=== PATIENT | female | born 1960 | race Hispanic/Latino ===

== ENCOUNTER 2019-06-08 09:50 | Outpatient (CLI) | payer MEDICARE ==
[2019-06-08 13:03] LABS: Basophils % (Auto) 0.7 % (0.0-1.8); Eosinophils # (Auto) 0.2 K/mm3 (0.0-0.4); Eosinophils % (Auto) 2.9 % (0.0-4.3); Hematocrit 41.6 % (30.3-42.9); Lymphocytes # (Auto) 1.7 K/mm3 (1.2-5.4); Mean Corpuscular HGB Conc 34 % (30-34); Mean Corpuscular Volume 93 fl (79-97); Monocytes # (Auto) 0.4 K/mm3 (0.0-0.8); Platelet Count 287 K/mm3 (140-440); Red Blood Count 4.48 M/mm3 (3.65-5.03); Red Cell Distribution Width 13.2 % (13.2-15.2)
[2019-06-08 13:27] LABS: Creatinine,Urine 34.5 mg/dL (0.1-20.0); Microalbumin/Creatinine Ratio 133.3 ug/mg
[2019-06-08 13:39] LABS: Alanine Aminotransferase 29 units/L (7-56); Albumin 4.8 g/dL (3.9-5); BUN/Creatinine Ratio 18; Blood Urea Nitrogen 11 mg/dL (7-17); Calcium 10.3 mg/dL (8.4-10.2); Chol/HDL Ratio 5.09 %; HDL Cholesterol 51 mg/dL (40-59); Hemolysis Index 5; LDL Cholesterol,Direct 172 mg/dL (50-130)
[2019-06-11 13:58] LABS: Vitamin D, 25-OH, D2 <4 ng/mL
== END 2019-06-08 09:51 | disposition home or self-care (01) ==
LOC: LAB 09:50
PROVIDERS: ATTEND Internal Medicine
DX: E11.65 Type 2 diabetes mellitus with hyperglycemia (principal); E78.5 Hyperlipidemia, unspecified; Z00.00 Encounter for general adult medical examination without abnormal findings; Z13.29 Encounter for screening for other suspected endocrine disorder; Z13.21 Encounter for screening for nutritional disorder
CPT/HCPCS: 36415; 80053; 80061; 82043; 82306; 82607; 83036; 84443; 85025

== ENCOUNTER 2020-02-24 09:53 | Outpatient (CLI) | payer MEDICARE | END 2020-02-24 09:54 | disposition home or self-care (01) | LOC: MAMMO 09:53 | PROVIDERS: ATTEND Internal Medicine | DX: Z12.31 Encounter for screening mammogram for malignant neoplasm of breast (principal) | CPT/HCPCS: 77067 ==

== ENCOUNTER 2020-08-01 13:10 | Emergency (ER) | payer MEDICARE ==
[2020-08-01 14:17] VITALS: BP 150/72
[2020-08-01] MEDS ORDERED: DIPHtheria,PERTUSSIS(ACELL),TETANUS VACCINE/PF 0.5 ML VIAL IM ONE (14:49)
--- NOTE | 2020-08-01 15:09 | XRay Report ---
LEFT TIBIA AND FIBULA 2 VIEWS INDICATION: left leg pain s/p direct blow. COMPARISON: None. IMPRESSION: No acute osseous or soft tissue abnormality. No significant DJD. Signer Name: Jeff Medina Jr, MD Signed: 08/01/2020 3:04 PM Workstation Name: [id number]
--- NOTE | 2020-08-01 15:20 | Emergency Department Report ---
ED Lower Extremity HPI - General Chief Complaint: Extremity Injury, Lower Stated Complaint: LEG LEFT INJURY Time Seen by Provider: 08/01/20 14:19 Source: patient Mode of arrival: Ambulatory Limitations: No Limitations - History of Present Illness Initial Comments: This is a 60-year-old female nontoxic, well nourished in appearance, no acute signs of distress presents to the ED with c/o of right lower leg abrasion. Patient stated that while at work she hit her leg against the metal cart. Patient denies any other injuries or trauma. Patient denies decreased sensation or range of motion. Patient stated bleeding is under control. Denies any numbn ess, tingling, fever, chills, nausea, vomiting, chest pain, shortness of breath, headache or stiff neck. Patient denies any allergies to significant past medical history. Patient is that he is not up-to-date with tetanus. MD Complaint: leg injury -: This morning Injury: Leg: Left Place: work Severity: mild Severity scale (0 -10): 3 Improves With: rest Worsens With: palpation Context: direct blow Associated Symptoms: ambulatory. denies: snap/pop sensation, swelling, numbness, tingling, unable to bear weight, able to partially bear weight - Related Data Previous Rx's Medication Instructions Recorded Last Taken Type Sulfamethoxazole/Trimethoprim 1 each PO BID #14 tablet 08/01/20 Unknown Rx [Bactrim DS TAB] Allergies Allergy/AdvReac Type Severity Reaction Status Date / Time codeine Allergy Itching Verified 08/01/20 14:18 ED Review of Systems ROS: Stated complaint: LEG LEFT INJURY Other details as noted in HPI Comment: All other systems reviewed and negative Constitutional: denies: chills, fever Eyes: denies: eye pain, eye discharge, vision change ENT: denies: ear pain, throat pain Respiratory: denies: cough, shortness of breath, wheezing Cardiovascular: denies: chest pain, palpitations Endocrine: no symptoms reported Gastrointestinal: denies: abdominal pain, nausea, diarrhea Genitourinary: denies: urgency, dysuria, discharge Musculoskeletal: denies: back pain, joint swelling, arthralgia Skin: denies: rash, lesions Neurological: denies: headache, weakness, paresthesias Psychiatric: denies: anxiety, depression Hematological/Lymphatic: denies: easy bleeding, easy bruising ED Past Medical Hx - Past Medical History Previous Medical History?: Yes Hx Diabetes: Yes Hx of Cancer: Yes (cervical) Hx Arthritis: Yes Hx Asthma: Yes Additional medical history: fibromylagia - Surgical History Past Surgical History?: Yes Additional Surgical History: bilateral hand surgery for trigger finger'. hy sterectomy - Social History Smoking Status: Current Every Day Smoker Substance Use Type: None - Medications Home Medications: Home Medications Medication Instructions Recorded Confirmed Last Taken Type Sulfamethoxazole/Trimethoprim 1 each PO BID #14 tablet 08/01/20 Unknown Rx [Bactrim DS TAB] ED Physical Exam - General Limitations: No Limitations General appearance: alert, in no apparent distress - Head Head exam: Present: atraumatic, normocephalic - Eye Eye exam: Present: normal appearance - Neck Neck exam: Present: normal inspection, full ROM - Respiratory Respiratory exam: Absent: respiratory distress - Cardiovascular Cardiovascular Exam: Present: regular rate - Extremities Exam Extremities exam: Present: normal inspection, full ROM, tenderness, normal capillary refill. Absent: joint swelling, calf tenderness - Expanded Lower Extremity Exam Left Hip exam: Present: normal inspection, full ROM. Absent: tenderness, swelling Upper Leg exam: Present: normal inspection, full ROM. Absent: tenderness, swelling, abrasion, laceration, ecchymosis, deformity, crepidus, dislocation, erythema Knee exam: Present: normal inspection, full ROM, full knee extension. Absent: tenderness, swelling, abrasion, laceration, ecchymosis, deformity, crepidus, dislocation, erythema, effusion, pain w/ pronation/supination, posterior draw sign, pain/laxity with valgus, pain/laxity with varus Lower Leg exam: Present: full ROM, tenderness, abrasion. Absent: swelling, laceration, ecchymosis, deformity, crepidus, dislocation, erythema, palpable cord, Harley's sign Ankle exam: Present: normal inspection, full ROM. Absent: tenderness, swelling Foot/Toe exam: Present: normal inspection, full ROM. Absent: tenderness, swelling Neuro vascular tendon exam: Present: no vascular compromise Gait: Positive: observed and normal 1 - 1 cm superficial abrasion - Back Exam Back exam: Present: normal inspection, full ROM. Absent: tenderness, CVA tenderness (R), CVA tenderness (L), muscle spasm, paraspinal tenderness, vertebral tenderness, rash noted - Neurological Exam Neurological exam: Present: alert, oriented X3, normal gait - Psychiatric Psychiatric exam: Present: normal affect, normal mood - Skin Skin exam: Present: warm, dry, intact, normal color. Absent: rash ED Course Vital Signs 08/01/20 14:14 Temperature 98.3 F Pulse Rate 99 H Respiratory 16 Rate Blood Pressure 150/72 O2 Sat by Pulse 99 Oximetry - Reevaluation(s) Reevaluation #1: 08/01/20 15:22 Patient is speaking in full sentences with no signs of distress noted. ED Lower Extremity MDM - Radiology Data [facility] [address] [place] [address] XRay Report Signed Patient: LIS RODRIGUEZ MR#: [id number] : 1960 Acct:[id number] Age/Sex: 60 / F ADM Date: 08/01/20 Loc: ED Attending Dr: Ordering Physician: SHIKHA VERAS NP Date of Service: 08/01/20 Procedure(s): XR tibia fibula 2V LT Accession Number(s): [id number] cc: SHIKHA VERAS NP Fluoro Time In Minutes: LEFT TIBIA AND FIBULA 2 VIEWS INDICATION: left leg pain s/p direct blow. COMPARISON: None. IMPRESSION: No acute osseous or soft tissue abnormality. No significant DJD. Signer Name: Jeff Medina Jr, MD Signed: 08/01/2020 3:04 PM Workstation Name: [id number] Transcribed By: TTR Dictated By: JEFF MEDINA JR, MD Electronically Authenticated By: JEFF MEDINA JR, MD Signed Date/Time: 08/01/201503 DD/ 03 TD/TT: - Medical Decision Making This is a 60-year-old female that presents with left leg abrasion. Patient is stable and was examined by me. X-ray has been obtained and dictated by the radiologist. Patient is notified of the x-ray report with noted by the patient. Patient does have normal gait with no tenderness and no joint swelling. No ecchymosis. no joint redness or swelling. Not warm to touch. No signs of cellulites present. The area has been cleaned and sterile dressing has been applied. Patient received a tetanus booster in the ER. Educated on proper wound care. Patient be discharged with Bactrim empirically. At time of discharge, the patient does not seem toxic or ill in appearance. No acute signs of distress noted. Patient agrees to discharge treatment plan of care. No further questions noted by the patient. Critical care attestation.: If time is entered above; I have spent that time in minutes in the direct care of this critically ill patient, excluding procedure time. ED Disposition Clinical Impression: Abrasion, left lower leg, initial encounter Disposition: TO HOME OR SELFCARE Is pt being admited?: No Does the pt Need Aspirin: No Condition: Stable Instructions: Abrasion, Wound Care, Adult Additional Instructions: Follow-up with a primary care doctor in 3-5 days or if symptoms worsen and continue return to emergency room as soon as possible. Prescriptions: Sulfamethoxazole/Trimethoprim [Bactrim DS TAB] 1 each PO BID #14 tablet Referrals: PRIMARY CAREMD [Referring] - 3-5 Days PORTER ELIZONDO MD [Staff Physician] - 3-5 Days Time of Disposition: 15:24
== END 2020-08-01 16:43 | disposition home or self-care (01) ==
LOC: ED 13:10
DX: S80.812A Abrasion, left lower leg, initial encounter (principal); E11.9 Type 2 diabetes mellitus without complications; M19.90 Unspecified osteoarthritis, unspecified site; J45.909 Unspecified asthma, uncomplicated; F17.200 Nicotine dependence, unspecified, uncomplicated; Z98.890 Other specified postprocedural states; Z88.6 Allergy status to analgesic agent; Z79.899 Other long term (current) drug therapy; Z90.710 Acquired absence of both cervix and uterus; W22.8XXA Striking against or struck by other objects, initial encounter; Y93.89 Activity, other specified; Y92.89 Other specified places as the place of occurrence of the external cause; Y99.0 Civilian activity done for income or pay
CPT/HCPCS: 90471; 90715; 99283

== ENCOUNTER 2020-12-24 19:33 | Inpatient (IN) | payer MEDICARE ==
[2020-12-24] MEDS ORDERED: IPRATROPIUM 0.02% NEBU 2.5 ML IH ONE (20:38)
[2020-12-24] MEDS ORDERED: LEVALBUTEROL 0.63 MG/3 ML NEBU IH ONE (20:39)
--- NOTE | 2020-12-24 20:44 | Emergency Department Report ---
ED Asthma HPI - General Chief Complaint: Adult Asthma Stated Complaint: ASTHMA ATTACK Time Seen by Provider: 12/24/20 20:38 Source: patient, EMS - History of Present Illness Initial Comments: Patient is 60 years old female with history of asthma. Patient brought to the emergency room via EMS from home for evaluation of asthma attack. Patient stated the symptoms started last night and she has been using her albuterol with no improvement. Patient received albuterol, Solu-Medrol and magnesium sulfate by EMS. Symptom improved transiently however patient symptoms became more severe in the ER required BiPAP. EMS stated that initial oxygen saturation was 83%. Patient denied any prior intubation before. Patient denied any fever but she stated that she feels like she is having some chills. Patient stated that she had modern COVID-19 vaccine both doses in October. MD Complaint: "asthma attack", shortness of breath, wheezing -: Last night Asthma History: adult onset Treatments Prior to Arrival: inhaled bronchodilator, IV steroid - Related Data Current Asthma Therapy: inhaled bronchodilator Previous Rx's Medication Instructions Recorded Last Taken Type Sulfamethoxazole/Trimethoprim 1 each PO BID #14 tablet 08/01/20 Unknown Rx [Bactrim DS TAB] Allergies Allergy/AdvReac Type Severity Reaction Status Date / Time aspirin Allergy Mild Nausea Verified 12/24/20 21:12 ED Review of Systems ROS: Stated complaint: ASTHMA ATTACK Other details as noted in HPI Comment: All other systems reviewed and negative Constitutional: chills. denies: fever Respiratory: shortness of breath, SOB with exertion, SOB at rest, wheezing. denies: cough Cardiovascular: denies: chest pain, palpitations Gastrointestinal: denies: abdominal pain, nausea, vomiting Musculoskeletal: denies: back pain Neurological: denies: headache, weakness ED Past Medical Hx - Past Medical History Hx Diabetes: Yes Hx Arthritis: Yes Hx Asthma: Yes Additional medical history: fibromylagia - Surgical History Additional Surgical History: bilateral hand surgery for trigger finger'. hysterectomy - Social History Smoking Status: Current Every Day Smoker Substance Use Type: None - Medications Home Medications: Home Medications Medication Instructions Recorded Confirmed Last Taken Type Sulfamethoxazole/Trimethoprim 1 each PO BID #14 tablet 08/01/20 Unknown Rx [Bactrim DS TAB] ED Physical Exam - General General appearance: alert, in distress - Head Head exam: Present: atraumatic, normocephalic, normal inspection - Eye Eye exam: Present: normal appearance, PERRL - ENT ENT exam: Present: normal exam, normal orophraynx, mucous membranes moist - Neck Neck exam: Present: normal inspection, full ROM. Absent: tenderness, meningismus - Respiratory Respiratory exam: Present: respiratory distress, wheezes, rales, rhonchi, accessory muscle use, decreased breath sounds, prolonged expiratory. Absent: stridor - Cardiovascular Cardiovascular Exam: Present: regular rate, normal rhythm, normal heart sounds - GI/Abdominal GI/Abdominal exam: Present: soft, normal bowel sounds. Absent: distended, tenderness, guarding, rebound, rigid, organomegaly, mass, bruit, pulsatile mass, hernia - Extremities Exam Extremities exam: Present: normal inspection, full ROM, normal capillary refill. Absent: tenderness, pedal edema, joint swelling, calf tenderness - Back Exam Back exam: Present: normal inspection, full ROM. Absent: CVA tenderness (R), CVA tenderness (L) - Neurological Exam Neurological exam: Present: alert, oriented X3, CN II-XII intact, normal gait, reflexes normal. Absent: motor sensory deficit - Psychiatric Psychiatric exam: Present: normal mood - Skin Skin exam: Present: warm, intact, normal color ED Course Vital Signs 12/24/20 12/24/20 12/24/20 20:38 21:20 22:05 Temperature Pulse Rate Pulse Rate [ 123 H Throughout] Respiratory 25 H Rate Respiratory 15 Rate [ Throughout] Blood Pressure O2 Sat by Pulse 98 Oximetry 12/25/20 12/25/20 12/25/20 00:50 03:17 03:30 Temperature Pulse Rate 125 H 125 H 126 H Pulse Rate [ Throughout] Respiratory 24 25 H 25 H Rate Respiratory Rate [ Throughout] Blood Pressure 147/76 147/76 O2 Sat by Pulse 97 96 95 Oximetry 12/25/20 12/25/20 12/25/20 03:46 04:00 04:16 Temperature Pulse Rate 114 H 112 H 113 H Pulse Rate [ Throughout] Respiratory 21 21 21 Rate Respiratory Rate [ Throughout] Blood Pressure 147/76 147/76 O2 Sat by Pulse 94 93 94 Oximetry 12/25/20 12/25/20 12/25/20 04:30 04:46 05:00 Temperature Pulse Rate 114 H 115 H 115 H Pulse Rate [ Throughout] Respiratory 22 23 21 Rate Respiratory Rate [ Throughout] Blood Pressure 147/76 147/76 127/78 O2 Sat by Pulse 93 94 96 Oximetry 12/25/20 12/25/20 12/25/20 05:16 05:30 05:46 Temperature Pulse Rate 113 H 107 H 119 H Pulse Rate [ Throughout] Respiratory 26 H 18 27 H Rate Respiratory Rate [ Throughout] Blood Pressure 127/78 127/78 127/78 O2 Sat by Pulse 96 96 95 Oximetry 12/25/20 12/25/20 12/25/20 06:00 06:16 06:30 Temperature Pulse Rate 113 H 119 H 116 H Pulse Rate [ Throughout] Respiratory 21 15 22 Rate Respiratory Rate [ Throughout] Blood Pressure 131/80 131/80 131/80 O2 Sat by Pulse 97 96 96 Oximetry 12/25/20 12/25/20 12/25/20 06:46 07:00 07:16 Temperature Pulse Rate 124 H 106 H 112 H Pulse Rate [ Throughout] Respiratory 22 17 19 Rate Respiratory Rate [ Throughout] Blood Pressure 131/80 122/73 131/80 O2 Sat by Pulse 90 95 95 Oximetry 12/25/20 12/25/20 12/25/20 07:30 07:40 07:46 Temperature Pulse Rate 120 H 110 H Pulse Rate [ Throughout] Respiratory 21 21 16 Rate Respiratory Rate [ Throughout] Blood Pressure 131/80 131/80 O2 Sat by Pulse 92 95 94 Oximetry 12/25/20 12/25/20 12/25/20 08:00 08:16 08:30 Temperature Pulse Rate 107 H 114 H 121 H Pulse Rate [ Throughout] Respiratory 18 21 21 Rate Respiratory Rate [ Throughout] Blood Pressure 137/84 137/84 137/84 O2 Sat by Pulse 95 94 95 Oximetry 12/25/20 12/25/20 12/25/20 08:46 09:00 09:15 Temperature Pulse Rate 110 H 118 H 123 H Pulse Rate [ Throughout] Respiratory 21 23 24 Rate Respiratory Rate [ Throughout] Blood Pressure 137/84 130/81 130/81 O2 Sat by Pulse 96 95 84 Oximetry 12/25/20 12/25/20 12/25/20 09:30 09:46 10:00 Temperature Pulse Rate 121 H 118 H 124 H Pulse Rate [ Throughout] Respiratory 19 24 24 Rate Respiratory Rate [ Throughout] Blood Pressure 130/81 130/81 124/70 O2 Sat by Pulse 87 84 80 L Oximetry 12/25/20 12/25/20 12/25/20 10:16 10:30 10:46 Temperature Pulse Rate 114 H 121 H 120 H Pulse Rate [ Throughout] Respiratory 20 25 H 27 H Rate Respiratory Rate [ Throughout] Blood Pressure 124/70 124/70 124/70 O2 Sat by Pulse 86 85 89 Oximetry 12/25/20 12/25/20 12/25/20 11:00 11:16 11:30 Temperature Pulse Rate 117 H 122 H 127 H Pulse Rate [ Throughout] Respiratory 23 33 H 27 H Rate Respiratory Rate [ Throughout] Blood Pressure 111/53 111/53 111/53 O2 Sat by Pulse 87 83 L 81 L Oximetry 12/25/20 12/25/20 12/25/20 11:46 12:00 12:16 Temperature 98.8 F Pulse Rate 116 H 119 H 105 H Pulse Rate [ Throughout] Respiratory 23 22 20 Rate Respiratory Rate [ Throughout] Blood Pressure 111/53 126/71 126/71 O2 Sat by Pulse 88 85 90 Oximetry 12/25/20 12/25/20 12/25/20 12:30 12:46 13:00 Temperature Pulse Rate 116 H 111 H 113 H Pulse Rate [ Throughout] Respiratory 25 H 18 22 Rate Respiratory Rate [ Throughout] Blood Pressure 126/71 126/71 128/84 O2 Sat by Pulse 85 90 88 Oximetry 12/25/20 12/25/20 12/25/20 13:16 13:30 13:46 Temperature Pulse Rate 120 H 102 H 94 H Pulse Rate [ Throughout] Respiratory 26 H 21 19 Rate Respiratory Rate [ Throughout] Blood Pressure 128/84 128/84 128/84 O2 Sat by Pulse 84 91 95 Oximetry 12/25/20 12/25/20 12/25/20 14:00 14:16 14:30 Temperature Pulse Rate 118 H 107 H 108 H Pulse Rate [ Throughout] Respiratory 26 H 23 22 Rate Respiratory Rate [ Throughout] Blood Pressure 134/81 134/81 134/81 O2 Sat by Pulse 87 92 91 Oximetry 12/25/20 12/25/20 12/25/20 14:46 15:00 15:16 Temperature Pulse Rate 114 H 120 H 116 H Pulse Rate [ 109 H Throughout] Respiratory 18 29 H 22 Rate Respiratory 21 Rate [ Throughout] Blood Pressure 134/81 137/83 137/83 O2 Sat by Pulse 90 91 91 Oximetry 12/25/20 12/25/20 12/25/20 15:30 15:46 16:00 Temperature Pulse Rate 103 H 108 H 114 H Pulse Rate [ Throughout] Respiratory 20 19 23 Rate Respiratory Rate [ Throughout] Blood Pressure 137/83 137/83 146/85 O2 Sat by Pulse 93 94 89 Oximetry 12/25/20 12/25/20 12/25/20 16:16 16:30 16:46 Temperature Pulse Rate 119 H 119 H 113 H Pulse Rate [ Throughout] Respiratory 19 24 21 Rate Respiratory Rate [ Throughout] Blood Pressure 146/85 146/85 146/85 O2 Sat by Pulse 90 89 88 Oximetry 12/25/20 12/25/20 12/25/20 17:00 17:16 17:30 Temperature Pulse Rate 108 H 112 H 121 H Pulse Rate [ Throughout] Respiratory 21 20 26 H Rate Respiratory Rate [ Throughout] Blood Pressure 135/80 135/80 135/80 O2 Sat by Pulse 91 92 87 Oximetry 12/25/20 12/25/20 12/25/20 17:46 18:00 18:16 Temperature Pulse Rate 114 H 111 H 117 H Pulse Rate [ Throughout] Respiratory 24 23 27 H Rate Respiratory Rate [ Throughout] Blood Pressure 135/80 140/87 140/87 O2 Sat by Pulse 91 91 89 Oximetry 12/25/20 12/25/20 12/25/20 18:30 18:46 19:00 Temperature Pulse Rate 121 H 112 H 109 H Pulse Rate [ Throughout] Respiratory 27 H 23 21 Rate Respiratory Rate [ Throughout] Blood Pressure 140/87 140/87 129/74 O2 Sat by Pulse 87 90 91 Oximetry 12/25/20 12/25/20 19:16 20:00 Temperature Pulse Rate 111 H Pulse Rate [ 121 H Throughout] Respiratory 23 Rate Respiratory 20 Rate [ Throughout] Blood Pressure 129/74 O2 Sat by Pulse 89 Oximetry ED Medical Decision Making - Lab Data Result diagrams: 12/25/20 04:04 12/25/20 04:04 - Radiology Data Radiology results: report reviewed - Medical Decision Making Patient is 60 years old female with history of asthma. Patient brought to the emergency room via EMS from home for evaluation of asthma attack. Patient stated the symptoms started last night and she has been using her albuterol with no improvement. Patient received albuterol, Solu-Medrol and magnesium sulfate by EMS. Symptom improved transiently however patient symptoms became more severe in the ER required BiPAP. EMS stated that initial oxygen saturation was 83%. Patient denied any prior intubation before. Patient denied any fever but she stated that she feels like she is having some chills. Chest x-ray showed right lung atypical pneumonia. Patient started on Rocephin and Zithromax. Labs reviewed and show white blood cells of 20,000. I discussed the patient with , he agreed to admit the patient to medical service for further management. Critical Care Time: Yes Critical care time in (mins) excluding proc time.: 30 Critical care attestation.: If time is entered above; I have spent that time in minutes in the direct care of this critically ill patient, excluding procedure time. ED Disposition Clinical Impression: Acute asthma exacerbation, Pneumonia, Acute respiratory failure Disposition: 09 OP ADMIT IP TO THIS HOSP Is pt being admited?: Yes Condition: Stable
--- NOTE | 2020-12-24 21:12 | XRay Report ---
CHEST 1 VIEW INDICATION / CLINICAL INFORMATION: Dyspnea. COMPARISON: None available. FINDINGS: SUPPORT DEVICES: None. HEART / MEDIASTINUM: No significant abnormality. LUNGS / PLEURA: Both lungs are hyperinflated. There is interstitial prominence throughout the right l evans, asymmetrical compared with the left. Left lung is relatively clear. No focal area of consolidati on noted. No pneumothorax. ADDITIONAL FINDINGS: No significant additional findings. IMPRESSION: 1. Diffuse interstitial prominence throughout the right lung only. This could indicate the presence o f atypical pneumonia. Signer Name: Stefani Sutton MD Signed: 12/24/2020 9:08 PM Workstation Name: [id number]
[2020-12-24 21:35] LABS: BUN/Creatinine Ratio 23; Blood Urea Nitrogen 14 mg/dL (7-17); Calcium 9.5 mg/dL (8.4-10.2); Hemolysis Index 2
[2020-12-24 21:44] LABS: Hematocrit 39.6 % (30.3-42.9); Hemoglobin 13.5 gm/dl (10.1-14.3); Mean Corpuscular HGB Conc 34 % (30-34); Mean Corpuscular Volume 94 fl (79-97); Platelet Count 289 K/mm3 (140-440); Red Blood Count 4.22 M/mm3 (3.65-5.03); Red Cell Distribution Width 13.8 % (13.2-15.2)
[2020-12-24] MEDS ORDERED: MORPHINE 4 MG/1 ML INJ IM ONE (21:56)
[2020-12-24] MEDS ORDERED: cefTRIAXone/NS 1 GM/50 ML 1 GM/50 ML BAG IV ONE (22:02)
[2020-12-24] MEDS ORDERED: AZITHROMYCIN/NS 500 MG/250 ML 500 MG/250 ML BAG IV ONE (22:02)
[2020-12-24 22:41] LABS: RBC Morphology Normal; Total Cells Counted 100
[2020-12-24] MEDS ORDERED: ALBUTEROL 2.5 MG/3 ML NEBU IH PRN (22:56)
[2020-12-24] MEDS ORDERED: ACETAMINOPHEN 325 MG TAB PO PRN (22:56)
[2020-12-24] MEDS ORDERED: ONDANSETRON 4 MG/2 ML INJ IV PRN (22:56)
[2020-12-24] MEDS ORDERED: hydrALAZINE 20 MG/1 ML INJ IV PRN (22:59)
--- NOTE | 2020-12-24 23:07 | History and Physical Report ---
History of Present Illness Date of examination: 12/24/20 Date of admission: 12/24/20 Chief complaint: Shortness of breath Asthma attack History of present illness: 10 years old female with history of asthma was brought to the emergency room because of progressive shortness of breath and asthma exacerbation since last night and she has been using her albuterol with no improvement. Patient received albuterol, Solu-Medrol and magnesium sulfate by EMS. Symptom improved transiently however patient symptoms became more severe in the ER required BiPAP. EMS stated that initial oxygen saturation was 83%. Patient denied any prior intubation before. Patient denied any fever but she stated that she feels like she is having some chills. Patient stated that she had modern COVID-19 vaccine both doses in October. In the emergency room patient is found to have acute asthma exacerbation and pneumonia Past History Past Medical History: arthritis, diabetes, other (Asthma) Medications and Allergies Allergies Allergy/AdvReac Type Severity Reaction Status Date / Time aspirin Allergy Mild Nausea Verified 12/24/20 21:12 Home Medications Medication Instructions Recorded Confirmed Last Taken Type Sulfamethoxazole/Trimethoprim 1 each PO BID #14 tablet 08/01/20 Unknown Rx [Bactrim DS TAB] Active Meds: Active Medications Azithromycin (Zithromax/Ns) 500 mg in 250 mls @ 250 mls/hr IV ONCE ONE; Protocol Stop: 12/24/20 23:01 Last Admin: 12/24/20 22:37 Dose: 250 mls/hr Documented by: Review of Systems Cardiovascular: shortness of breath, dyspnea on exertion Respiratory: shortness of breath, dyspnea on exertion, wheezing Exam - Constitutional Vitals: Temp Pulse Resp BP Pulse Ox 123 H 25 H 98 12/24/20 20:38 12/24/20 22:05 12/24/20 21:20 General appearance: Present: no acute distress, well-nourished - EENT Eyes: Present: PERRL ENT: hearing intact, clear oral mucosa - Neck Neck: Present: supple, normal ROM - Respiratory Respiratory effort: normal Respiratory: bilateral: wheezing - Cardiovascular Heart Sounds: Present: S1 & S2. Absent: rub, click - Extremities Extremities: pulses symmetrical, No edema Peripheral Pulses: within normal limits - Abdominal General gastrointestinal: Present: soft, non-tender, non-distended, normal bowel sounds Female genitourinary: Present: normal - Integumentary Integumentary: Present: clear, warm, dry - Musculoskeletal Musculoskeletal: gait normal, strength equal bilaterally - Psychiatric Psychiatric: appropriate mood/affect, intact judgment & insight - Neurologic Neurologic: CNII-XII intact, moves all extremities Results - Labs CBC & Chem 7: 12/24/20 21:02 12/24/20 21:02 Labs: Laboratory Last Values WBC 20.5 K/mm3 (4.5-11.0) H 12/24/20 21:02 RBC 4.22 M/mm3 (3.65-5.03) 12/24/20 21:02 Hgb 13.5 gm/dl (10.1-14.3) 12/24/20 21: Hct 39.6 % (30.3-42.9) 12/24/20 21: MCV 94 fl (79-97) 12/24/20 21: MCH 32 pg (28-32) 12/24/20 21: MCHC 34 % (30-34) 12/24/20 21: RDW 13.8 % (13.2-15.2) 12/24/20 21: Plt Count 289 K/mm3 (140-440) 12/24/20 21:02 Add Manual Diff Complete 12/24/20 21: Total Counted 100 12/24/20 21:02 Seg Neutrophils % Oral Communication Instructor 12/24/20 21:02 Seg Neuts % (Manual) 91.0 % (40.0-70.0) H 12/24/20 21:02 Lymphocytes % (Manual) 5.0 % (13.4-35.0) L 12/24/20 21:02 Monocytes % (Manual) 4.0 % (0.0-7.3) 12/24/20 21: Nucleated RBC % Not Reportable 12/24/20 21: Seg Neutrophils # Man 18.7 K/mm3 (1.8-7.7) H 12/24/20 21:02 Band Neutrophils # 0.0 K/mm3 12/24/20 21:02 Lymphocytes # (Manual) 1.0 K/mm3 (1.2-5.4) L 12/24/20 21:02 Abs React Lymphs (Man) 0.0 K/mm3 12/24/20 21:02 Monocytes # (Manual) 0.8 K/mm3 (0.0-0.8) 12/24/20 21:02 Eosinophils # (Manual) 0.0 K/mm3 (0.0-0.4) 12/24/20 21:02 Basophils # (Manual) 0.0 K/mm3 (0.0-0.1) 12/24/20 21:02 Metamyelocytes # 0.0 K/mm3 12/24/20 21:02 Myelocytes # 0.0 K/mm3 12/24/20 21:02 Promyelocytes # 0.0 K/mm3 12/24/20 21:02 Blast Cells # 0.0 K/mm3 12/24/20 21:02 WBC Morphology Not Reportable 12/24/20 21:02 Hypersegmented Neuts Not Reportable 12/24/20 21:02 Hyposegmented Neuts Not Reportable 12/24/20 21:02 Hypogranular Neuts Not Reportable 12/24/20 21:02 Smudge Cells Not Reportable 12/24/20 21:02 Toxic Granulation Not Reportable 12/24/20 21:02 Toxic Vacuolation Not Reportable 12/24/20 21:02 Dohle Bodies Not Reportable 12/24/20 21:02 Pelger-Huet Anomaly Not Reportable 12/24/20 21:02 David Rods Not Reportable 12/24/20 21:02 Platelet Estimate Not Reportable 12/24/20 21:02 Clumped Platelets Not Reportable 12/24/20 21:02 Plt Clumps, EDTA Not Reportable 12/24/20 21:02 Large Platelets Not Reportable 12/24/20 21:02 Giant Platelets Not Reportable 12/24/20 21:02 Platelet Satelliting Not Reportable 12/24/20 21:02 Plt Morphology Comment Not Reportable 12/24/20 21:02 RBC Morphology Normal 12/24/20 21:02 Dimorphic RBCs Not Reportable 12/24/20 21:02 Polychromasia Not Reportable 12/24/20 21:02 Hypochromasia Not Reportable 12/24/20 21:02 Poikilocytosis Not Reportable 12/24/20 21:02 Anisocytosis Not Reportable 12/24/20 21:02 Microcytosis Not Reportable 12/24/20 21:02 Macrocytosis Not Reportable 12/24/20 21:02 Spherocytes Not Reportable 12/24/20 21:02 Pappenheimer Bodies Not Reportable 12/24/20 21:02 Sickle Cells Not Reportable 12/24/20 21:02 Target Cells Not Reportable 12/24/20 21:02 Tear Drop Cells Not Reportable 12/24/20 21:02 Ovalocytes Not Reportable 12/24/20 21:02 Helmet Cells Not Reportable 12/24/20 21:02 Abb[place] Bodies Not Reportable 12/24/20 21:02 [place] Rings Not Reportable 12/24/20 21:02 [place] Cells Not Reportable 12/24/20 21:02 Bite Cells Not Reportable 12/24/20 21:02 Crenated Cell Not Reportable 12/24/20 21:02 Elliptocytes Not Reportable 12/24/20 21:02 Acanthocytes (Spur) Not Reportable 12/24/20 21:02 Rouleaux Not Reportable 12/24/20 21:02 Hemoglobin C Crystals Not Reportable 12/24/20 21:02 Schistocytes Not Reportable 12/24/20 21:02 Malaria parasites Not Reportable 12/24/20 21:02 Fam Bodies Not Reportable 12/24/20 21:02 Hem Pathologist Commnt No 12/24/20 21:02 Sodium 138 mmol/L (137-145) 12/24/20 21:02 Potassium 3.8 mmol/L (3.6-5.0) 12/24/20 21:02 Chloride 100.0 mmol/L (98-107) 12/24/20 21:02 Carbon Dioxide 22 mmol/L (22-30) 12/24/20 21:02 Anion Gap 20 mmol/L 12/24/20 21:02 BUN 14 mg/dL (7-17) 12/24/20 21:02 Creatinine 0.6 mg/dL (0.6-1.2) 12/24/20 21:02 Estimated GFR > 60 ml/min 12/24/20 21:02 BUN/Creatinine Ratio 23 % 12/24/20 21:02 Glucose 208 mg/dL (65-100) H 12/24/20 21:02 Calcium 9.5 mg/dL (8.4-10.2) 12/24/20 21:02 - Imaging and Cardiology Chest x-ray: report reviewed Assessment and Plan VTE prophylaxis?: Chemical Plan of care discussed with patient/family: Yes - Patient Problems (1) Acute asthma exacerbation Current Visit: Yes Status: Acute Plan to address problem: Admit the patient to medical telemetry. Oxygen by nasal cannula 3 L/min. DuoNeb by nebulizer every 4 hours as needed. Albuterol via nebulizer every 4 hours as needed. Solu-Medrol 40 mg IV every 6 hours. Singular 10 mg p.o. daily. Will consult pulmonary evaluation. Recheck CBC BMP in the morning (2) Pneumonia Current Visit: Yes Status: Acute Plan to address problem: Oxygen by nasal cannula 3 L/min. DuoNeb by nebulizer every 4 hours as needed. Albuterol via nebulizer every 4 hours as needed. Solu-Medrol 40 mg IV every 6 hours. Singular 10 mg p.o. daily. Will consult pulmonary evaluation. Recheck CBC BMP in the morning (3) Tobacco abuse Current Visit: Yes Status: Acute Plan to address problem: Patient counseled regarding quit smoking. We will put the patient on nicotine patch. (4) Diabetes Current Visit: Yes Status: Acute Plan to address problem: 1800 kcal ADA diet. Humalog sliding scale moderate dose coverage. Will consult diabetic education (5) DVT prophylaxis Current Visit: Yes Status: Acute Plan to address problem: Heparin 5000 units subcu every 8 hours for DVT prophylaxis. Pepcid 20 mg p.o. twice daily for GI prophylaxis. Patient is a full code
[2020-12-25] MEDS: methylPREDNISolone Sod Succinate 40 MG/1 ML INJ IV SCH ×4 (00:03→23:43)
[2020-12-25 05:05] LABS: Hematocrit 37.7 % (30.3-42.9); Hemoglobin 12.4 gm/dl (10.1-14.3); Mean Corpuscular HGB Conc 33 % (30-34); Mean Corpuscular Volume 94 fl (79-97); Platelet Count 266 K/mm3 (140-440); Red Blood Count 4.01 M/mm3 (3.65-5.03); Red Cell Distribution Width 13.9 % (13.2-15.2)
[2020-12-25 05:16] LABS: Blood Urea Nitrogen 18 mg/dL (7-17); Hemolysis Index 6
[2020-12-25 05:48] LABS: BUN/Creatinine Ratio 30
[2020-12-25] MEDS: HEPARIN 5,000 UNIT/1 ML VIAL SUB-Q SCH ×3 (06:14→23:44)
[2020-12-25] MEDS: HYDROmorphone 1 MG/1 ML INJ IV PRN ×2 (06:16→10:17)
[2020-12-25] MEDS: IPRATROPIUM/ALBUTEROL SULFATE 3 ML AMPUL.NEB IH SCH ×4 (09:10→20:41)
[2020-12-25 10:08] LABS: Total Cells Counted 100
[2020-12-25 10:09] LABS: Band Neutrophils # (Manual) 0.6 K/mm3
[2020-12-25 10:11] LABS: Platelet Estimate Consistent w Auto; RBC Morphology Normal
[2020-12-25] MEDS: AZITHROMYCIN 250 MG TAB PO SCH (11:20)
[2020-12-25] MEDS: FAMOTIDINE 20 MG TAB PO SCH ×2 (11:20→23:43)
[2020-12-25] MEDS: cefTRIAXone/NS 2 GM/100 ML 2 GM/100 ML BAG IV SCH (11:51)
[2020-12-25] MEDS ORDERED: FUROSEMIDE 20 MG/2 ML INJ IV NR (12:02)
--- NOTE | 2020-12-25 12:05 | Consultation ---
History of Present Illness Consult date: 12/25/20 History of present illness: 61 y/o female admitted with asthma exacerbation thought secondary to pneumonia. Past History Past Medical History: arthritis, diabetes, other (Asthma) Medications and Allergies Allergies Allergy/AdvReac Type Severity Reaction Status Date / Time aspirin Allergy Mild Nausea Verified 12/24/20 21:12 Home Medications Medication Instructions Recorded Confirmed Last Taken Type Dulaglutide [Trulicity] 1.5 mg SQ 12XD 12/26/20 12/26/20 12/20/20 History Omeprazole 40 mg PO DAILY 12/26/20 12/26/20 12/24/20 History Sitagliptin Phosphate [Januvia] 100 mg PO DAILY 12/26/20 12/26/20 12/24/20 History metFORMIN [Glucophage] 100 mg PO BID 12/26/20 12/26/20 12/24/20 History Albuterol Sulfate [Proventil Hfa] 6.7 gm IH PRN #1 vial 12/28/20 Unknown Rx Azithromycin [Zithromax TAB] 250 mg PO QDAY #3 tablet 12/28/20 Unknown Rx Budesonide/Formoterol Fumarate 10.2 gm IH BID #1 hfa.aer.ad 12/28/20 Unknown Rx [Symbicort 160-4.5 Mcg Inhaler] Montelukast [Singulair] 10 mg PO QHS #30 tablet 12/28/20 Unknown Rx clonazePAM [KlonoPIN] 0.25 mg PO BID #10 tablet 12/28/20 Unknown Rx guaiFENesin ER [Mucinex ER] 600 mg PO BID #14 tablet 12/28/20 Unknown Rx Active Meds: Active Medications Acetaminophen (Acetaminophen 325 Mg Tab) 650 mg PO Q4H PRN PRN Reason: Pain MILD(1-3)/Fever >100.5/FRANCO Albuterol (Albuterol 2.5 Mg/3 Ml Nebu) 2.5 mg IH Q3HRT PRN PRN Reason: Shortness Of Breath Albuterol/Ipratropium (Ipratropium/Albuterol Sulfate 3 Ml Ampul.Neb) 1 ampul IH Q6HRT [facility] Last Admin: 12/25/20 09:10 Dose: Not Given Documented by: Azithromycin (Azithromycin 250 Mg Tab) 250 mg PO QDAY [facility]; Protocol Last Admin: 12/25/20 11:20 Dose: 250 mg Documented by: Budesonide (Budesonide 0.5 Mg/2 Ml Nebu) 0.5 mg IH Q12HRT [facility] Famotidine (Famotidine 20 Mg Tab) 20 mg PO BID [facility] Last Admin: 12/25/20 11:20 Dose: 20 mg Documented by: Furosemide (Furosemide 20 Mg/2 Ml Inj) 20 mg IV ONCE NR Stop: 12/25/20 16:00 Heparin Sodium (Porcine) (Heparin 5,000 Unit/1 Ml Vial) 5,000 unit SUB-Q Q8HR [facility] Last Admin: 12/25/20 06:14 Dose: 5,000 unit Documented by: Hydralazine HCl (Hydralazine 20 Mg/1 Ml Inj) 10 mg IV Q6H PRN PRN Reason: Blood Pressure Hydromorphone HCl (Hydromorphone 1 Mg/1 Ml Inj) 0.5 mg IV Q3H PRN PRN Reason: Pain , Severe (7-10) Last Admin: 12/25/20 10:17 Dose: 0.5 mg Documented by: Ceftriaxone Sodium (Rocephin/Ns 2 Gm/100 Ml) 2 gm in 100 mls @ 200 mls/hr IV Q24H [facility]; Protocol Last Admin: 12/25/20 11:51 Dose: 200 mls/hr Documented by: Methylprednisolone Sodium Succinate (Methylprednisolone Sod Succinate 40 Mg/1 Ml Inj) 40 mg IV Q8HR [facility] Montelukast Sodium (Montelukast 10 Mg Tab) 10 mg PO QHS [facility] Ondansetron HCl (Ondansetron 4 Mg/2 Ml Inj) 4 mg IV Q8H PRN PRN Reason: Nausea And Vomiting Oxycodone/Acetaminophen (Oxycodone /Acetaminophen 5-325mg Tab) 1 tab PO Q6H PRN PRN Reason: Pain, Moderate (4-6) Sodium Chloride (Sodium Chloride 0.9% 10 Ml Flush Syringe) 10 ml IV BID [facility] Sodium Chloride (Sodium Chloride 0.9% 10 Ml Flush Syringe) 10 ml IV PRN PRN PRN Reason: LINE FLUSH Physical Examination Vital signs: Vital Signs Pulse Resp 123 H 15 12/24/20 20:38 12/24/20 20:38 Results - Laboratory Findings CBC and BMP: 12/26/20 05:19 08/04/21 15:20 Abnormal lab findings: Abnormal Labs 12/24/20 12/24/20 12/25/20 21:02 21:02 04:04 WBC 20.5 H 18.9 H Seg Neuts % (Manual) 91.0 H 90.0 H Lymphocytes % (Manual) 5.0 L 4.0 L Seg Neutrophils # Man 18.7 H 17.0 H Lymphocytes # (Manual) 1.0 L 0.8 L Carbon Dioxide BUN Glucose 208 H 12/25/20 04:04 WBC Seg Neuts % (Manual) Lymphocytes % (Manual) Seg Neutrophils # Man Lymphocytes # (Manual) Carbon Dioxide 21 L BUN 18 H Glucose 253 H - Diagnostic Findings Chest x-ray: image reviewed Assessment and Plan 60 y/o female with acute respiratory failure secondary to asthma exacerbation, concern for pneumonia 1. Agree with COVID testing if patient will allow 2. Lasix 20mg IV now 3. Added BID pulmicort, despite not knowing COVID results 4. Continue scheduled duonebs 5. Bipap, will attempt to wean 6. Agree with IV steroids 7. Guarded prognosis.
[2020-12-25] MEDS: BUDESONIDE 0.5 MG/2 ML NEBU IH SCH ×2 (14:44→20:41)
--- NOTE | 2020-12-25 16:10 | Progress Note ---
Assessment and Plan Assessment and plan: (1) Acute asthma exacerbation Current Visit: Yes Status: Acute Plan to address problem: Admit the patient to medical telemetry. Oxygen by nasal cannula 3 L/min. DuoNeb by nebulizer every 4 hours as needed. Albuterol via nebulizer every 4 hours as needed. Solu-Medrol 40 mg IV every 6 hours. Singular 10 mg p.o. daily. Will consult pulmonary evaluation. Recheck CBC BMP in the morning PEF ordered. BIPAP mask as needed. (2) Pneumonia Current Visit: Yes Status: Acute Plan to address problem: Possibly atypical PNA. Consolidation noted on CXR Rocephin/Azithromycin IV. Oxygen by nasal cannula 3 L/min. DuoNeb by nebulizer every 4 hours as needed. Albuterol via nebulizer every 4 hours as needed. Budesonide inh Solu-Medrol 40 mg IV every 6 hours. Pulm consulted echeck CBC BMP in the morning (3) Tobacco abuse Current Visit: Yes Status: Acute Plan to address problem: Patient counseled regarding quit smoking. We will put the patient on nicotine patch. (4) Diabetes Current Visit: Yes Status: Acute Plan to address problem: 1800 kcal ADA diet. Humalog sliding scale moderate dose coverage. Will consult diabetic education (5) DVT prophylaxis Current Visit: Yes Status: Acute Plan to address problem: Heparin 5000 units subcu every 8 hours for DVT prophylaxis. Pepcid 20 mg p.o. twice daily for GI prophylaxis. Patient is a full code History Interval history: Resting comfortably on encounter. On encounter, patient was complaining of back pain, stated she had degenerative disc disease. She stated that her breathing was improved from initial presentation. Upon looking at her bedside monitor, patient sats demonstrated SPO2 83 and heart rate tachycardic. She was advised to place bipap mask. Hospitalist Physical - Physical exam Narrative exam: General appearance: Present: no acute distress, thin, older than stated age. - EENT Eyes: Present: PERRL ENT: hearing intact, clear oral mucosa - Neck Neck: Present: supple, normal ROM - Respiratory Respiratory effort: normal Respiratory: bilateral: wheezing - Cardiovascular Heart Sounds: Present: S1 & S2. Absent: rub, click - Extremities Extremities: pulses symmetrical, No edema Peripheral Pulses: within normal limits - Abdominal General gastrointestinal: Present: soft, non-tender, non-distended, normal bowel sounds Female genitourinary: Present: normal - Integumentary Integumentary: Present: clear, warm, dry - Musculoskeletal Musculoskeletal: gait normal, strength equal bilaterally, pain to palpation of lower back. - Psychiatric Psychiatric: appropriate mood/affect, intact judgment & insight - Neurologic Neurologic: CNII-XII intact, moves all extremities - Constitutional Vitals: Temp Pulse Resp BP Pulse Ox 98.8 F 109 H 21 111/53 81 L 12/25/20 11:46 12/25/20 14:46 12/25/20 14:46 12/25/20 11:30 12/25/20 11:30 General appearance: Present: no acute distress, well-nourished Results - Labs CBC & Chem 7: 12/25/20 04:04 12/25/20 04:04 Labs: Laboratory Last Values WBC 18.9 K/mm3 (4.5-11.0) H 12/25/20 04:04 RBC 4.01 M/mm3 (3.65-5.03) 12/25/20 04:04 Hgb 12.4 gm/dl (10.1-14.3) 12/25/20 04:04 Hct 37.7 % (30.3-42.9) 12/25/20 04:04 MCV 94 fl (79-97) 12/25/20 04:04 MCH 31 pg (28-32) 12/25/20 04:04 MCHC 33 % (30-34) 12/25/20 04:04 RDW 13.9 % (13.2-15.2) 12/25/20 04:04 Plt Count 266 K/mm3 (140-440) 12/25/20 04:04 Add Manual Diff Complete 12/25/20 04:04 Total Counted 100 12/25/20 04:04 Seg Neutrophils % Cement Crusher Operator 12/25/20 04:04 Seg Neuts % (Manual) 90.0 % (40.0-70.0) H 12/25/20 04:04 Band Neutrophils % 3.0 % 12/25/20 04:04 Lymphocytes % (Manual) 4.0 % (13.4-35.0) L 12/25/20 04:04 Monocytes % (Manual) 3.0 % (0.0-7.3) 12/25/20 04:04 Nucleated RBC % Not Reportable 12/25/20 04:04 Seg Neutrophils # Man 17.0 K/mm3 (1.8-7.7) H 12/25/20 04:04 Band Neutrophils # 0.6 K/mm3 12/25/20 04:04 Lymphocytes # (Manual) 0.8 K/mm3 (1.2-5.4) L 12/25/20 04:04 Abs React Lymphs (Man) 0.0 K/mm3 12/25/20 04:04 Monocytes # (Manual) 0.6 K/mm3 (0.0-0.8) 12/25/20 04:04 Eosinophils # (Manual) 0.0 K/mm3 (0.0-0.4) 12/25/20 04:04 Basophils # (Manual) 0.0 K/mm3 (0.0-0.1) 12/25/20 04:04 Metamyelocytes # 0.0 K/mm3 12/25/20 04:04 Myelocytes # 0.0 K/mm3 12/25/20 04:04 Promyelocytes # 0.0 K/mm3 12/25/20 04:04 Blast Cells # 0.0 K/mm3 12/25/20 04:04 WBC Morphology Not Reportable 12/25/20 04:04 Hypersegmented Neuts Not Reportable 12/25/20 04:04 Hyposegmented Neuts Not Reportable 12/25/20 04:04 Hypogranular Neuts Not Reportable 12/25/20 04:04 Smudge Cells Not Reportable 12/25/20 04:04 Toxic Granulation Not Reportable 12/25/20 04:04 Toxic Vacuolation Not Reportable 12/25/20 04:04 Dohle Bodies Not Reportable 12/25/20 04:04 Pelger-Huet Anomaly Not Reportable 12/25/20 04:04 David Rods Not Reportable 12/25/20 04:04 Platelet Estimate Consistent w auto 12/25/20 04:04 Clumped Platelets Not Reportable 12/25/20 04:04 Plt Clumps, EDTA Not Reportable 12/25/20 04:04 Large Platelets Not Reportable 12/25/20 04:04 Giant Platelets Not Reportable 12/25/20 04:04 Platelet Satelliting Not Reportable 12/25/20 04:04 Plt Morphology Comment Not Reportable 12/25/20 04:04 RBC Morphology Normal 12/25/20 04:04 Dimorphic RBCs Not Reportable 12/25/20 04:04 Polychromasia Not Reportable 12/25/20 04:04 Hypochromasia Not Reportable 12/25/20 04:04 Poikilocytosis Not Reportable 12/25/20 04:04 Anisocytosis Not Reportable 12/25/20 04:04 Microcytosis Not Reportable 12/25/20 04:04 Macrocytosis Not Reportable 12/25/20 04:04 Spherocytes Not Reportable 12/25/20 04:04 Pappenheimer Bodies Not Reportable 12/25/20 04:04 Sickle Cells Not Reportable 12/25/20 04:04 Target Cells Not Reportable 12/25/20 04:04 Tear Drop Cells Not Reportable 12/25/20 04:04 Ovalocytes Not Reportable 12/25/20 04:04 Helmet Cells Not Reportable 12/25/20 04:04 Abb[place] Bodies Not Reportable 12/25/20 04:04 [place] Rings Not Reportable 12/25/20 04:04 [place] Cells Not Reportable 12/25/20 04:04 Bite Cells Not Reportable 12/25/20 04:04 Crenated Cell Not Reportable 12/25/20 04:04 Elliptocytes Not Reportable 12/25/20 04:04 Acanthocytes (Spur) Not Reportable 12/25/20 04:04 Rouleaux Not Reportable 12/25/20 04:04 Hemoglobin C Crystals Not Reportable 12/25/20 04:04 Schistocytes Not Reportable 12/25/20 04:04 Malaria parasites Not Reportable 12/25/20 04:04 Fam Bodies Not Reportable 12/25/20 04:04 Hem Pathologist Commnt No 12/25/20 04:04 Sodium 139 mmol/L (137-145) 12/25/20 04:04 Potassium 4.3 mmol/L (3.6-5.0) 12/25/20 04:04 Chloride 101.0 mmol/L (98-107) 12/25/20 04:04 Carbon Dioxide 21 mmol/L (22-30) L 12/25/20 04:04 Anion Gap 21 mmol/L 12/25/20 04:04 BUN 18 mg/dL (7-17) H 12/25/20 04:04 Creatinine 0.6 mg/dL (0.6-1.2) 12/25/20 04:04 Estimated GFR > 60 ml/min 12/25/20 04:04 BUN/Creatinine Ratio 30 % 12/25/20 04:04 Glucose 253 mg/dL (65-100) H 12/25/20 04:04 Calcium 9.0 mg/dL (8.4-10.2) 12/25/20 04:04 Coronavirus (PCR) Negative (Negative) 12/24/20 Unknown Active Medications - Current Medications Current Medications: Generic Name Dose Route Start Last Admin Trade Name Freq PRN Reason Stop Dose Admin Acetaminophen 650 mg 12/24/20 22:56 Acetaminophen 325 Mg Tab PO Q4H PRN Pain MILD(1-3)/Fever >100.5/FRANCO Albuterol 2.5 mg 12/24/20 22:56 Albuterol 2.5 Mg/3 Ml Nebu IH Q3HRT PRN Shortness Of Breath Albuterol/Ipratropium 1 ampul 12/25/20 12:15 12/25/20 14:44 Ipratropium/Albuterol Sulfate 3 Ml Ampul.Neb IH 1 ampul Q4HRT [facility] Administration Azithromycin 250 mg 12/25/20 10:00 12/25/20 11:20 Azithromycin 250 Mg Tab PO 250 mg QDAY [facility] Administration Protocol Budesonide 0.5 mg 12/25/20 12:15 12/25/20 14:44 Budesonide 0.5 Mg/2 Ml Nebu IH 0.5 mg Q12HRT [facility] Administration Famotidine 20 mg 12/25/20 10:00 12/25/20 11:20 Famotidine 20 Mg Tab PO 20 mg BID [facility] Administration Heparin Sodium (Porcine) 5,000 unit 12/25/20 06:00 12/25/20 14:24 Heparin 5,000 Unit/1 Ml Vial SUB-Q 5,000 unit Q8HR [facility] Administration Hydralazine HCl 10 mg 12/24/20 22:59 Hydralazine 20 Mg/1 Ml Inj IV Q6H PRN Blood Pressure Hydromorphone HCl 0.5 mg 12/24/20 22:56 12/25/20 10:17 Hydromorphone 1 Mg/1 Ml Inj IV 0.5 mg Q3H PRN Administration Pain , Severe (7-10) Ceftriaxone Sodium 2 gm in 100 mls @ 200 mls/hr 12/25/20 10:00 12/25/20 11:51 Rocephin/Ns 2 Gm/100 Ml IV 200 mls/hr Q24H [facility] Administration Protocol Methylprednisolone Sodium Succinate 40 mg 12/25/20 14:00 12/25/20 14:24 Methylprednisolone Sod Succinate 40 Mg/1 Ml Inj IV 40 mg Q8HR [facility] Administration Montelukast Sodium 10 mg 12/25/20 22:00 Montelukast 10 Mg Tab PO QHS [facility] Ondansetron HCl 4 mg 12/24/20 22:56 Ondansetron 4 Mg/2 Ml Inj IV Q8H PRN Nausea And Vomiting Oxycodone/Acetaminophen 1 tab 12/24/20 22:56 Oxycodone /Acetaminophen 5-325mg Tab PO Q6H PRN Pain, Moderate (4-6) Sodium Chloride 10 ml 12/25/20 10:00 12/25/20 12:12 Sodium Chloride 0.9% 10 Ml Flush Syringe IV 10 ml BID [facility] Administration Sodium Chloride 10 ml 12/24/20 22:56 Sodium Chloride 0.9% 10 Ml Flush Syringe IV PRN PRN LINE FLUSH
[2020-12-25] MEDS ORDERED: DEXTROSE 50% IN WATER (25GM) 50 ML SYRINGE IV PRN (16:16)
[2020-12-25] MEDS ORDERED: INSULIN GLARGINE 100 UNITS/ML SUB-Q SCH (22:00)
[2020-12-25] MEDS: MONTELUKAST 10 MG TAB PO SCH (23:43)
[2020-12-25] MEDS: oxyCODONE /ACETAMINOPHEN 5-325MG TAB PO PRN (23:44)
[2020-12-26] MEDS: IPRATROPIUM/ALBUTEROL SULFATE 3 ML AMPUL.NEB IH SCH ×7 (00:18→20:23)
[2020-12-26 05:58] LABS: Hematocrit 36.5 % (30.3-42.9); Hemoglobin 12.4 gm/dl (10.1-14.3); Mean Corpuscular HGB Conc 34 % (30-34); Mean Corpuscular Volume 95 fl (79-97); Platelet Count 253 K/mm3 (140-440); Red Blood Count 3.86 M/mm3 (3.65-5.03); Red Cell Distribution Width 13.8 % (13.2-15.2)
[2020-12-26] MEDS: HEPARIN 5,000 UNIT/1 ML VIAL SUB-Q SCH ×3 (06:04→22:27)
[2020-12-26] MEDS: methylPREDNISolone Sod Succinate 40 MG/1 ML INJ IV SCH ×3 (06:05→22:39)
[2020-12-26 06:18] LABS: Alanine Aminotransferase 22 units/L (7-56); Albumin 4.1 g/dL (3.9-5); Blood Urea Nitrogen 28 mg/dL (7-17); Calcium 9.4 mg/dL (8.4-10.2); Hemolysis Index 4
[2020-12-26 06:43] LABS: BUN/Creatinine Ratio 40
[2020-12-26] MEDS: BUDESONIDE 0.5 MG/2 ML NEBU IH SCH ×2 (08:20→20:23)
[2020-12-26] MEDS: AZITHROMYCIN 250 MG TAB PO SCH (09:01)
[2020-12-26] MEDS: oxyCODONE /ACETAMINOPHEN 5-325MG TAB PO PRN ×3 (09:01→22:28)
[2020-12-26] MEDS: FAMOTIDINE 20 MG TAB PO SCH ×2 (09:01→22:27)
[2020-12-26] MEDS ORDERED: FUROSEMIDE 20 MG/2 ML INJ IV NR (11:07)
--- NOTE | 2020-12-26 11:10 | Progress Note ---
Assessment and Plan 60 y/o female with acute respiratory failure secondary to asthma exacerbation, concern for pneumonia 12/26/20: Lasix again today. Continue BID pulmicort and scheduled duonebs. Continue IV steroids, consider switching to PO tomorrow. Elevated blood sugar per primary team. She is not in DKA 1. Agree with COVID testing if patient will allow 2. Lasix 20mg IV now 3. Added BID pulmicort, despite not knowing COVID results 4. Continue scheduled duonebs 5. Bipap, will attempt to wean 6. Agree with IV steroids 7. Guarded prognosis. Subjective Date of service: 12/26/20 Interval history: No acute events. COVID negative. Stable on 3 liters. Tolerated lasix on y . Objective Vital Signs - 12hr 12/25/20 12/26/20 12/26/20 23:19 00:20 00:45 Temperature 98.0 F Pulse Rate 108 H Pulse Rate [ 107 H Throughout] Respiratory 20 Rate Respiratory 18 Rate [ Throughout] Blood Pressure 142/79 O2 Sat by Pulse 89 96 Oximetry 12/26/20 12/26/20 12/26/20 01:48 03:56 04:27 Temperature 97.6 F Pulse Rate 113 H Pulse Rate [ 90 Throughout] Respiratory 18 Rate Respiratory 20 Rate [ Throughout] Blood Pressure O2 Sat by Pulse 96 83 L Oximetry 12/26/20 12/26/20 12/26/20 04:30 07:47 08:19 Temperature 97.9 F Pulse Rate 116 H 96 H Pulse Rate [ Throughout] Respiratory 20 Rate Respiratory Rate [ Throughout] Blood Pressure 118/68 O2 Sat by Pulse 90 99 Oximetry 12/26/20 08:20 Temperature Pulse Rate Pulse Rate [ 69 Throughout] Respiratory Rate Respiratory 20 Rate [ Throughout] Blood Pressure O2 Sat by Pulse Oximetry CBC and BMP: 12/26/20 05:19 12/26/20 05:19 Abnormal lab findings: Abnormal Labs 12/24/20 12/24/20 12/25/20 21:02 21:02 04:04 WBC 20.5 H 18.9 H Seg Neuts % (Manual) 91.0 H 90.0 H Lymphocytes % (Manual) 5.0 L 4.0 L Seg Neutrophils # Man 18.7 H 17.0 H Lymphocytes # (Manual) 1.0 L 0.8 L Sodium Chloride Carbon Dioxide BUN Glucose 208 H POC Glucose 12/25/20 12/25/20 12/26/20 04:04 23:35 05:19 WBC 12.9 H Seg Neuts % (Manual) Lymphocytes % (Manual) Seg Neutrophils # Man Lymphocytes # (Manual) Sodium Chloride Carbon Dioxide 21 L BUN 18 H Glucose 253 H POC Glucose 246 H 12/26/20 12/26/20 05:19 06:58 WBC Seg Neuts % (Manual) Lymphocytes % (Manual) Seg Neutrophils # Man Lymphocytes # (Manual) Sodium 131 L D Chloride 93.7 L Carbon Dioxide 21 L BUN 28 H Glucose 518 H* POC Glucose 387 H
[2020-12-26] MEDS: guaiFENesin ER 600 MG TAB PO SCH ×2 (12:30→22:27)
[2020-12-26] MEDS: INSULIN REGULAR, HUMAN 100 UNITS/1 ML SUB-Q SCH ×3 (12:31→22:39)
--- NOTE | 2020-12-26 14:09 | Progress Note ---
Assessment and Plan This is a 60-year-old female with history of asthma/COPD was brought to the emergency room with progressive worsening shortness of breath. Patient received albuterol, Solu-Medrol and magnesium sulfate by EMS. Symptom improved transiently however patient symptoms became more severe in the ER required BiPAP. EMS stated that initial oxygen saturation was 83%. Patient was admitted to the hospital for further evaluation and management. A/P -- Acute asthma/COPD exacerbation Admit the patient to medical telemetry. Status post BiPAP Oxygen by nasal cannula 3 L/min. DuoNeb by nebulizer every 4 hours as needed. Albuterol via nebulizer every 4 hours as needed. Solu-Medrol 40 mg IV every 6 hours. Singular 10 mg p.o. daily. Pulmonary consulted for further evaluation and management --Acute hypoxic respiratory failure, POA Due to pneumonia/asthma/COPD exacerbation Continue to treat underlying cause, wean off O2 as tolerated -- Pneumonia Possibly atypical PNA. Consolidation noted on CXR Rocephin/Azithromycin IV. Pulm consulted Covid test is negative, patient received Covid vaccination on October --Ongoing tobacco abuse Patient counseled regarding quit smoking. patient on nicotine patch. -- Diabetes 1800 kcal ADA diet. Humalog sliding scale moderate dose coverage. Will consult diabetic education -- DVT prophylaxis Heparin 5000 units subcu every 8 hours for DVT prophylaxis. Pepcid 20 mg p.o. twice daily for GI prophylaxis. Patient is a full code Daily clinical course: 12/25/20: Resting comfortably on encounter. On encounter, patient was complaining of back pain, stated she had degenerative disc disease. She stated that her breathing was improved from initial presentation. Upon looking at her bedside monitor, patient sats demonstrated SPO2 83 and heart rate tachycardic. She was advised to place bipap mask. 12/26/20: Patient remains on 4 L nasal cannula, still has significant wheezing, off from BiPAP. Continue to wean off O2, continue empiric antibiotics and empiric steroid with scheduled nebulizer breathing treatment. Pulmonary following -will follow recommendation Subjective Date of service: 12/26/20 Interval history: Patient seen and examined. Medical records and medication list reviewed. No acute event overnight noted by the RN. Patient remains on 4 L nasal cannula O2, off BiPAP, continue to complains of difficulty breathing even on resting Discussed plan of care at bedside with patient. Objective - Exam Narrative Exam: General appearance: Present: no acute distress, thin, older than stated age. - EENT Eyes: Present: PERRL ENT: hearing intact, clear oral mucosa - Neck Neck: Present: supple, normal ROM - Respiratory Respiratory effort: normal Respiratory: bilateral: wheezing - Cardiovascular Heart Sounds: Present: S1 & S2. Absent: rub, click - Extremities Extremities: pulses symmetrical, No edema Peripheral Pulses: within normal limits - Abdominal General gastrointestinal: Present: soft, non-tender, non-distended, normal bowel sounds Female genitourinary: Present: normal - Integumentary Integumentary: Present: clear, warm, dry - Musculoskeletal Musculoskeletal: gait normal, strength equal bilaterally, pain to palpation of lower back. - Psychiatric Psychiatric: appropriate mood/affect, intact judgment & insight - Neurologic Neurologic: CNII-XII intact, moves all extremities - Constitutional Vitals: Vital Signs - 12hr 12/26/20 12/26/20 12/26/20 03:56 04:27 04:30 Temperature 97.6 F Pulse Rate 113 H 116 H Pulse Rate [ 90 Throughout] Respiratory 18 Rate Respiratory 20 Rate [ Throughout] Blood Pressure O2 Sat by Pulse 83 L Oximetry 12/26/20 12/26/20 12/26/20 07:47 08:19 08:20 Temperature 97.9 F Pulse Rate 96 H Pulse Rate [ 69 Throughout] Respiratory 20 Rate Respiratory 20 Rate [ Throughout] Blood Pressure 118/68 O2 Sat by Pulse 90 99 Oximetry 12/26/20 12/26/20 12:17 13:03 Temperature 98.3 F Pulse Rate 108 H Pulse Rate [ 88 Throughout] Respiratory 18 Rate Respiratory 21 Rate [ Throughout] Blood Pressure 116/62 O2 Sat by Pulse 94 Oximetry - Labs CBC & Chem 7: 12/26/20 05:19 12/26/20 05:19 Labs: Abnormal lab results 12/25/20 12/26/20 12/26/20 Range/Units 23:35 05:19 05:19 WBC 12.9 H (4.5-11.0) K/mm3 Sodium 131 L D (137-145) mmol/L Chloride 93.7 L (98-107) mmol/L Carbon Dioxide 21 L (22-30) mmol/L BUN 28 H (7-17) mg/dL Glucose 518 H* (65-100) mg/dL POC Glucose 246 H (70-105) mg/dL 12/26/20 12/26/20 Range/Units 06:58 12:15 WBC (4.5-11.0) K/mm3 Sodium (137-145) mmol/L Chloride (98-107) mmol/L Carbon Dioxide (22-30) mmol/L BUN (7-17) mg/dL Glucose (65-100) mg/dL POC Glucose 387 H 496 H (70-105) mg/dL
[2020-12-26] MEDS: cefTRIAXone/NS 2 GM/100 ML 2 GM/100 ML BAG IV SCH (16:01)
[2020-12-26 17:28] LABS: Band Neutrophils # (Manual) 0.3 K/mm3; Burr Cells 3+; Platelet Estimate Consistent w Auto; Total Cells Counted 100
[2020-12-26] MEDS: MONTELUKAST 10 MG TAB PO SCH (22:27)
[2020-12-26] MEDS: INSULIN GLARGINE 100 UNITS/ML SUB-Q SCH (22:38)
[2020-12-26] MEDS ORDERED: cefTRIAXone/NS 2 GM/100 ML 2 GM/100 ML BAG IV ONE (22:45)
[2020-12-27] MEDS: IPRATROPIUM/ALBUTEROL SULFATE 3 ML AMPUL.NEB IH SCH ×5 (00:38→21:21)
[2020-12-27] MEDS: HEPARIN 5,000 UNIT/1 ML VIAL SUB-Q SCH ×3 (07:23→22:34)
[2020-12-27] MEDS: methylPREDNISolone Sod Succinate 40 MG/1 ML INJ IV SCH ×3 (07:23→22:34)
[2020-12-27] MEDS: oxyCODONE /ACETAMINOPHEN 5-325MG TAB PO PRN ×2 (07:38→22:32)
[2020-12-27] MEDS: BUDESONIDE 0.5 MG/2 ML NEBU IH SCH ×2 (08:46→21:21)
[2020-12-27] MEDS: INSULIN REGULAR, HUMAN 100 UNITS/1 ML SUB-Q SCH ×4 (08:49→22:34)
[2020-12-27] MEDS: FAMOTIDINE 20 MG TAB PO SCH ×2 (10:13→22:33)
[2020-12-27] MEDS: guaiFENesin ER 600 MG TAB PO SCH ×2 (10:13→22:34)
[2020-12-27] MEDS: AZITHROMYCIN 250 MG TAB PO SCH (10:13)
[2020-12-27] MEDS: cefTRIAXone/NS 2 GM/100 ML 2 GM/100 ML BAG IV SCH ×2 (13:18→18:25)
--- NOTE | 2020-12-27 14:42 | Progress Note ---
Assessment and Plan 60 y/o female with acute respiratory failure secondary to asthma exacerbation, concern for pneumonia 12/27/20: Hold on lasix today. Continue scheduled nebs. Ok with switching to oral steroids. Suggest changing to Prednisone 60 daily and taper as follows: 60 daily for 3 days, 40 daily for 3 days, 20 daily for 3 days then stop. Needs walk test prior to discharge. 12/26/20: Lasix again today. Continue BID pulmicort and scheduled duonebs. Continue IV steroids, consider switching to PO tomorrow. Elevated blood sugar per primary team. She is not in DKA 1. Agree with COVID testing if patient will allow 2. Lasix 20mg IV now 3. Added BID pulmicort, despite not knowing COVID results 4. Continue scheduled duonebs 5. Bipap, will attempt to wean 6. Agree with IV steroids 7. Guarded prognosis. Subjective Date of service: 12/27/20 Interval history: No acute events. Down to 2 liters documented but per note by RT, Oxygen was off during that time so not sure if that is a room air sat or not. Objective Vital Signs - 12hr 12/27/20 12/27/20 12/27/20 04:00 07:38 08:28 Pulse Rate 100 H Respiratory 20 Rate Respiratory 20 Rate [Chest] O2 Sat by Pulse 93 Oximetry CBC and BMP: 12/26/20 05:19 12/26/20 05:19 Abnormal lab findings: Abnormal Labs 12/24/20 12/24/20 12/25/20 21:02 21:02 04:04 WBC 20.5 H 18.9 H Seg Neuts % (Manual) 91.0 H 90.0 H Lymphocytes % (Manual) 5.0 L 4.0 L Seg Neutrophils # Man 18.7 H 17.0 H Lymphocytes # (Manual) 1.0 L 0.8 L Sodium Chloride Carbon Dioxide BUN Glucose 208 H POC Glucose 12/25/20 12/25/20 12/26/20 04:04 23:35 05:19 WBC 12.9 H Seg Neuts % (Manual) 92.0 H Lymphocytes % (Manual) 3.0 L Seg Neutrophils # Man 11.9 H Lymphocytes # (Manual) 0.4 L Sodium Chloride Carbon Dioxide 21 L BUN 18 H Glucose 253 H POC Glucose 246 H 12/26/20 12/26/20 12/26/20 05:19 06:58 12:15 WBC Seg Neuts % (Manual) Lymphocytes % (Manual) Seg Neutrophils # Man Lymphocytes # (Manual) Sodium 131 L D Chloride 93.7 L Carbon Dioxide 21 L BUN 28 H Glucose 518 H* POC Glucose 387 H 496 H 12/26/20 12/26/20 12/27/20 16:04 21:22 07:35 WBC Seg Neuts % (Manual) Lymphocytes % (Manual) Seg Neutrophils # Man Lymphocytes # (Manual) Sodium Chloride Carbon Dioxide BUN Glucose POC Glucose 352 H 406 H 208 H 12/27/20 11:12 WBC Seg Neuts % (Manual) Lymphocytes % (Manual) Seg Neutrophils # Man Lymphocytes # (Manual) Sodium Chloride Carbon Dioxide BUN Glucose POC Glucose 320 H
--- NOTE | 2020-12-27 14:59 | Progress Note ---
Assessment and Plan This is a 60-year-old female with history of asthma/COPD was brought to the emergency room with progressive worsening shortness of breath. Patient received albuterol, Solu-Medrol and magnesium sulfate by EMS. Symptom improved transiently however patient symptoms became more severe in the ER required BiPAP. EMS stated that initial oxygen saturation was 83%. Patient was admitted to the hospital for further evaluation and management. A/P -- Acute asthma/COPD exacerbation Admit the patient to medical telemetry. Status post BiPAP Oxygen by nasal cannula 3 L/min. DuoNeb by nebulizer every 4 hours as needed. Albuterol via nebulizer every 4 hours as needed. Solu-Medrol 40 mg IV every 6 hours. Singular 10 mg p.o. daily. Pulmonary consulted for further evaluation and management --Acute hypoxic respiratory failure, POA Due to pneumonia/asthma/COPD exacerbation Continue to treat underlying cause, wean off O2 as tolerated -- Pneumonia Possibly atypical PNA. Consolidation noted on CXR Rocephin/Azithromycin IV. Pulm consulted Covid test is negative, patient received Covid vaccination on October --Ongoing tobacco abuse Patient counseled regarding quit smoking. patient on nicotine patch. --Anxiety, will initiate on Klonopin (her home meds) -- Diabetes 1800 kcal ADA diet. Humalog sliding scale moderate dose coverage. Will consult diabetic education -- DVT prophylaxis Heparin 5000 units subcu every 8 hours for DVT prophylaxis. Pepcid 20 mg p.o. twice daily for GI prophylaxis. Patient is a full code Daily clinical course: 12/25/20: Resting comfortably on encounter. On encounter, patient was complaining of back pain, stated she had degenerative disc disease. She stated that her breathing was improved from initial presentation. Upon looking at her bedside monitor, patient sats demonstrated SPO2 83 and heart rate tachycardic. She was advised to place bipap mask. 12/26/20: Patient remains on 4 L nasal cannula, still has significant wheezing, off from BiPAP. Continue to wean off O2, continue empiric antibiotics and empiric steroid with scheduled nebulizer breathing treatment. Pulmonary following -will follow recommendation 12/27/20: Complains of anxiety, patient remains on nasal cannula O2. Ordered for walk test for home O2 requirement. Will alda off steroid. will start on klonopin for anxiety. Subjective Date of service: 12/27/20 Interval history: Patient seen and examined. Medical records and medication list reviewed. No acute event overnight noted by the RN. Patient remains on 3 L nasal cannula O2, continue to complains of difficulty breathing even on resting Discussed plan of care at bedside with patient. Objective - Exam Narrative Exam: General appearance: Present: no acute distress, thin, older than stated age. - EENT Eyes: Present: PERRL ENT: hearing intact, clear oral mucosa - Neck Neck: Present: supple, normal ROM - Respiratory Respiratory effort: normal Respiratory: bilateral: wheezing - Cardiovascular Heart Sounds: Present: S1 & S2. Absent: rub, click - Extremities Extremities: pulses symmetrical, No edema Peripheral Pulses: within normal limits - Abdominal General gastrointestinal: Present: soft, non-tender, non-distended, normal bowel sounds Female genitourinary: Present: normal - Integumentary Integumentary: Present: clear, warm, dry - Musculoskeletal Musculoskeletal: gait normal, strength equal bilaterally, pain to palpation of lower back. - Psychiatric Psychiatric: appropriate mood/affect, intact judgment & insight - Neurologic Neurologic: CNII-XII intact, moves all extremities - Constitutional Vitals: Vital Signs - 12hr 12/27/20 12/27/20 12/27/20 04:00 07:38 08:28 Pulse Rate 100 H Respiratory 20 Rate Respiratory 20 Rate [Chest] O2 Sat by Pulse 93 Oximetry - Labs CBC & Chem 7: 12/26/20 05:19 12/27/20 15:20 Labs: Abnormal lab results 12/26/20 12/26/20 12/26/20 Range/Units 05:19 16:04 21:22 Seg Neuts % (Manual) 92.0 H (40.0-70.0) % Lymphocytes % (Manual) 3.0 L (13.4-35.0) % Seg Neutrophils # Man 11.9 H (1.8-7.7) K/mm3 Lymphocytes # (Manual) 0.4 L (1.2-5.4) K/mm3 POC Glucose 352 H 406 H (70-105) mg/dL 12/27/20 12/27/20 Range/Units 07:35 11:12 Seg Neuts % (Manual) (40.0-70.0) % Lymphocytes % (Manual) (13.4-35.0) % Seg Neutrophils # Man (1.8-7.7) K/mm3 Lymphocytes # (Manual) (1.2-5.4) K/mm3 POC Glucose 208 H 320 H (70-105) mg/dL
[2020-12-27 16:15] LABS: Blood Urea Nitrogen 31 mg/dL (7-17); Calcium 10.5 mg/dL (8.4-10.2); Hemolysis Index 8
[2020-12-27 16:21] LABS: BUN/Creatinine Ratio 44
[2020-12-27] MEDS: clonazePAM 0.5 MG TAB PO SCH ×2 (17:18→22:33)
[2020-12-27] MEDS: MONTELUKAST 10 MG TAB PO SCH (22:33)
[2020-12-27] MEDS: INSULIN GLARGINE 100 UNITS/ML SUB-Q SCH (22:36)
[2020-12-28] MEDS: IPRATROPIUM/ALBUTEROL SULFATE 3 ML AMPUL.NEB IH SCH ×3 (02:40→14:00)
[2020-12-28] MEDS: BUDESONIDE 0.5 MG/2 ML NEBU IH SCH (07:30)
[2020-12-28] MEDS: cefTRIAXone/NS 2 GM/100 ML 2 GM/100 ML BAG IV SCH ×2 (07:36→10:10)
[2020-12-28] MEDS: oxyCODONE /ACETAMINOPHEN 5-325MG TAB PO PRN ×2 (07:43→15:10)
[2020-12-28] MEDS: HEPARIN 5,000 UNIT/1 ML VIAL SUB-Q SCH ×2 (07:46→15:10)
[2020-12-28] MEDS: INSULIN REGULAR, HUMAN 100 UNITS/1 ML SUB-Q SCH ×3 (09:18→16:36)
[2020-12-28] MEDS: AZITHROMYCIN 250 MG TAB PO SCH (09:21)
[2020-12-28] MEDS: guaiFENesin ER 600 MG TAB PO SCH (09:21)
[2020-12-28] MEDS: FAMOTIDINE 20 MG TAB PO SCH (09:22)
[2020-12-28] MEDS: clonazePAM 0.5 MG TAB PO SCH (09:22)
[2020-12-28] MEDS ORDERED: predniSONE 20 MG TAB PO SCH (10:00)
--- NOTE | 2020-12-28 10:56 | Progress Note ---
Assessment and Plan 60 y/o female with acute respiratory failure secondary to asthma exacerbation, concern for pneumonia 12/28/20: No objection to discharge today. 12/27/20: Hold on lasix today. Continue scheduled nebs. Ok with switching to oral steroids. Suggest changing to Prednisone 60 daily and taper as follows: 60 daily for 3 days, 40 daily for 3 days, 20 daily for 3 days then stop. Needs walk test prior to discharge. 12/26/20: Lasix again today. Continue BID pulmicort and scheduled duonebs. Continue IV steroids, consider switching to PO tomorrow. Elevated blood sugar per primary team. She is not in DKA 1. Agree with COVID testing if patient will allow 2. Lasix 20mg IV now 3. Added BID pulmicort, despite not knowing COVID results 4. Continue scheduled duonebs 5. Bipap, will attempt to wean 6. Agree with IV steroids 7. Guarded prognosis. Subjective Date of service: 12/28/20 Interval history: No acute events. Objective Vital Signs - 12hr 12/28/20 12/28/20 12/28/20 00:43 04:43 07:30 Temperature 97.4 F L 97.4 F L Pulse Rate 99 H 84 Pulse Rate [ 90 Throughout] Respiratory 20 20 Rate Respiratory 16 Rate [ Throughout] Blood Pressure 104/69 111/70 O2 Sat by Pulse 98 98 99 Oximetry 12/28/20 12/28/20 07:43 07:45 Temperature 97.8 F Pulse Rate 87 Pulse Rate [ Throughout] Respiratory 20 20 Rate Respiratory Rate [ Throughout] Blood Pressure 97/72 O2 Sat by Pulse 97 Oximetry CBC and BMP: 12/26/20 05:19 12/27/20 15:20 Abnormal lab findings: Abnormal Labs 12/24/20 12/24/20 12/25/20 21:02 21:02 04:04 WBC 20.5 H 18.9 H Seg Neuts % (Manual) 91.0 H 90.0 H Lymphocytes % (Manual) 5.0 L 4.0 L Seg Neutrophils # Man 18.7 H 17.0 H Lymphocytes # (Manual) 1.0 L 0.8 L Sodium Chloride Carbon Dioxide BUN Glucose 208 H POC Glucose Calcium 12/25/20 12/25/20 12/26/20 04:04 23:35 05:19 WBC 12.9 H Seg Neuts % (Manual) 92.0 H Lymphocytes % (Manual) 3.0 L Seg Neutrophils # Man 11.9 H Lymphocytes # (Manual) 0.4 L Sodium Chloride Carbon Dioxide 21 L BUN 18 H Glucose 253 H POC Glucose 246 H Calcium 12/26/20 12/26/20 12/26/20 05:19 06:58 12:15 WBC Seg Neuts % (Manual) Lymphocytes % (Manual) Seg Neutrophils # Man Lymphocytes # (Manual) Sodium 131 L D Chloride 93.7 L Carbon Dioxide 21 L BUN 28 H Glucose 518 H* POC Glucose 387 H 496 H Calcium 12/26/20 12/26/20 12/27/20 16:04 21:22 07:35 WBC Seg Neuts % (Manual) Lymphocytes % (Manual) Seg Neutrophils # Man Lymphocytes # (Manual) Sodium Chloride Carbon Dioxide BUN Glucose POC Glucose 352 H 406 H 208 H Calcium 12/27/20 12/27/20 12/27/20 11:12 15:20 17:27 WBC Seg Neuts % (Manual) Lymphocytes % (Manual) Seg Neutrophils # Man Lymphocytes # (Manual) Sodium 134 L Chloride 95.6 L Carbon Dioxide BUN 31 H Glucose 270 H POC Glucose 320 H 194 H Calcium 10.5 H 12/27/20 12/28/20 19:49 07:55 WBC Seg Neuts % (Manual) Lymphocytes % (Manual) Seg Neutrophils # Man Lymphocytes # (Manual) Sodium Chloride Carbon Dioxide BUN Glucose POC Glucose 319 H 226 H Calcium
--- NOTE | 2020-12-28 15:46 | Discharge Summary ---
Providers - Providers Date of Admission: 12/25/20 04:27 Date of discharge: 12/28/20 Attending physician: SEBASTIAN GUPTA 12/24/20 22:56 Consult to Physician [CONS] Routine Comment: Consulting Provider: DERREK CHUA Physician Instructions: Reason For Exam: asthma Primary care physician: [employer]IMAL IMPERSONATOR Hospitalization Condition: Stable Hospital course: This is a 60-year-old female with history of asthma/COPD was brought to the emergency room with progressive worsening shortness of breath. Patient received albuterol, Solu-Medrol and magnesium sulfate by EMS. Symptom improved transiently however patient symptoms became more severe in the ER required BiPAP. EMS stated that initial oxygen saturation was 83%. Patient was admitted to the hospital for further evaluation and management. Patient was admitted to medical floor with scheduled nebs, iv abx, iv steroids and supplemental O2 to keep O2 sat at 94%. CXR showed infiltrates suggestive for atypical pneumonia. Patient was tested negative for Covid. Patients symptom improved with medical management and she was assessed for home O2 requirement.. Patient was then discharged home in stable condition with outpt f/u. Daily clinical course: 12/25/20: Resting comfortably on encounter. On encounter, patient was complaining of back pain, stated she had degenerative disc disease. She stated that her breathing was improved from initial presentation. Upon looking at her bedside monitor, patient sats demonstrated SPO2 83 and heart rate tachycardic. She was advised to place bipap mask. 12/26/20: Patient remains on 4 L nasal cannula, still has significant wheezing, off from BiPAP. Continue to wean off O2, continue empiric antibiotics and emp iric steroid with scheduled nebulizer breathing treatment. Pulmonary following -will follow recommendation 12/27/20: Complains of anxiety, patient remains on nasal cannula O2. Ordered for walk test for home O2 requirement. Will alda off steroid. will start on klonopin for anxiety. 12/28/20: Patient remains on oxygen, assess for home O2 requirement and patient did not qualify. Patient will be discharged home with home oxygen and outpatient follow-up. A/P -- Acute asthma/COPD exacerbation Admit the patient to medical telemetry. Status post BiPAP Oxygen by nasal cannula 3 L/min. DuoNeb by nebulizer every 4 hours as needed. Albuterol via nebulizer every 4 hours as needed. Solu-Medrol 40 mg IV every 6 hours. Singular 10 mg p.o. daily. Pulmonary consulted for further evaluation and management --Acute hypoxic respiratory failure, POA Due to pneumonia/asthma/COPD exacerbation Continue to treat underlying cause, wean off O2 as tolerated -- Pneumonia Possibly atypical PNA. Consolidation noted on CXR Rocephin/Azithromycin IV. Pulm consulted Covid test is negative, patient received Covid vaccination on October --Ongoing tobacco abuse Patient counseled regarding quit smoking. patient on nicotine patch. --Anxiety, will initiate on Klonopin (her home meds) -- Diabetes 1800 kcal ADA diet. Humalog sliding scale moderate dose coverage. Will consult diabetic education -- DVT prophylaxis Heparin 5000 units subcu every 8 hours for DVT prophylaxis. Pepcid 20 mg p.o. twice daily for GI prophylaxis. Patient is a full code Disposition: [id number]/[place]-06 HOME UNDER HOME [facility] Final Discharge Diagnosis (Prints w/discharge instructions): --Acute hypoxic respiratory failure. --Acute COPD/asthma exacerbation. --Atypical pneumonia. --Ongoing tobacco abuse. --Anxiety. --Sepsis due to atypical pneumonia Time spent for discharge: 34 minutes Core Measure Documentation - Palliative Care Palliative Care/ Comfort Measures: Not Applicable - Core Measures Any of the following diagnoses?: none Exam - Physical Exam Narrative exam: General appearance: Present: no acute distress, thin, older than stated age. - EENT Eyes: Present: PERRL ENT: hearing intact, clear oral mucosa - Neck Neck: Present: supple, normal ROM - Respiratory Respiratory effort: normal Respiratory: bilateral: wheezing - Cardiovascular Heart Sounds: Present: S1 & S2. Absent: rub, click - Extremities Extremities: pulses symmetrical, No edema Peripheral Pulses: within normal limits - Abdominal General gastrointestinal: Present: soft, non-tender, non-distended, normal bowel sounds Female genitourinary: Present: normal - Integumentary Integumentary: Present: clear, warm, dry - Musculoskeletal Musculoskeletal: gait normal, strength equal bilaterally, pain to palpation of lower back. - Psychiatric Psychiatric: appropriate mood/affect, intact judgment & insight - Neurologic Neurologic: CNII-XII intact, moves all extremities - Constitutional Vitals: Temp Pulse Resp BP Pulse Ox 97.4 F L 98 H 18 107/69 96 12/28/20 12:04 12/28/20 14:00 12/28/20 14:00 12/28/20 12:04 12/28/20 12:04 Plan Activity: advance as tolerated Weight Bearing Status: Weight Bear as Tolerated Diet: low fat, low salt Special Instructions: home health RN Follow up with: PRIMARY CARE, [Primary Care Provider] - 7 Days ELSA DOVE MD [Staff Physician] - 7 Days Prescriptions: Montelukast [Singulair] 10 mg PO QHS #30 tablet clonazePAM [KlonoPIN] 0.25 mg PO BID #10 tablet guaiFENesin ER [Mucinex ER] 600 mg PO BID #14 tablet Albuterol Sulfate [Proventil Hfa] 6.7 gm IH PRN #1 vial Budesonide/Formoterol Fumarate [Symbicort 160-4.5 Mcg Inhaler] 10.2 gm IH BID #1 hfa.[id number].[email or web address] Azithromycin [Zithromax TAB] 250 mg PO QDAY #3 tablet
[2020-12-28 16:07] VITALS: BP 117/69
== END 2020-12-28 18:04 | disposition home health service (06) | DRG 871 ==
LOC: ED 19:33 → 4A 19:34 → UNDOADMIN 12-25 04:27 → 4A 12-25 21:16 → UNDODISIN 12-28 18:04
PROVIDERS: ADMIT Hospitalist; ATTEND Internal Medicine
PROC: 5A09357 Assistance with Respiratory Ventilation, Less than 24 Consecutive Hours, Continuous Positive Airway Pressure (ICD-10-PCS; principal; 2020-12-25)
DX: A41.9 Sepsis, unspecified organism (principal); J18.9 Pneumonia, unspecified organism; J96.01 Acute respiratory failure with hypoxia; J45.901 Unspecified asthma with (acute) exacerbation; J44.1 Chronic obstructive pulmonary disease with (acute) exacerbation; F41.9 Anxiety disorder, unspecified; M19.90 Unspecified osteoarthritis, unspecified site; E11.9 Type 2 diabetes mellitus without complications; F17.200 Nicotine dependence, unspecified, uncomplicated; Z88.6 Allergy status to analgesic agent; Z79.899 Other long term (current) drug therapy; Z71.6 Tobacco abuse counseling; Z90.710 Acquired absence of both cervix and uterus
CPT/HCPCS: 36415; 71045; 80048; 80053; 82962; 83735; 84100; 85007; 85025; 87641; 94640; 94644; G0378; J0456; J0696; J1170; J1644; J1815; J1940; J2270; J2405; J2920; J7512; U0003